=== PATIENT | male | born 1935 | race Caucasian/White ===

== ENCOUNTER 2016-04-03 05:07 | Emergency (ER) | payer BC ==
[~2016-04-03] VITALS: Ht 162.6 cm; Wt 78.1 kg
[~2016-04-03 05:07] MED LIST: CIPR-255 PO; CMD4 PO; RPF/8 PO
[2016-04-03 05:16] VITALS: TEMP 36.4; Ht 162.6 cm; Wt 78.1 kg
[2016-04-03] MEDS ORDERED: WARF4TAB PO (06:10)
[2016-04-03 06:16] LABS: MANUAL MICROSCOPIC REQUIRED? YES; URINE APPEARANCE TURBID (CLEAR); URINE BILIRUBIN NEG (NEG); URINE COLOR RED; URINE NITRITE NEG (NEG); URINE PH 6.5 (4.5-7.5); URINE SPECIFIC GRAVITY 1.025 (1.000-1.030); UROBILINOGEN NEG (NEG)
[2016-04-03 06:24] LABS: REVIEW REQ? NO
[2016-04-03 06:24] LABS: BASO % 0.2 %; BASO ABS # 0.01 K/uL (0-0.2); COMPLETE YES; EOS % 1.7 %; HEMATOCRIT 43.9 % (42-52); IG% 0.2 %; LYMPH % 16.4 %; LYMPH ABS # 0.88 K/uL (1.2-3.4); MEAN CELL VOLUME 92.2 fL (80-100); MEAN CORPUSCULAR HEMOGLOBIN 31.1 pg (25-34); MEAN CORPUSCULAR HGB CONC 33.7 g/dl (32-36); MEAN PLATELET VOLUME 10.1 fL (7.4-10.4); MONO % 7.9 %; NEUT % 73.6 %; PLATELET COUNT 170 K/uL (130-400); RED BLOOD COUNT 4.76 M/uL (4.7-6.1); WHITE BLOOD COUNT 5.35 K/uL (4.8-10.8)
[2016-04-03 06:27] LABS: URINE RBC >30 /hpf (0-4)
[2016-04-03 06:31] LABS: URINE WBC >30 /hpf (0-5)
[2016-04-03 06:35] LABS: INR 1.7 (0.9-1.1); PARTIAL THROMBOPLASTIN RATIO 1.1; PROTHROMBIN TIME (PATIENT) 18.7 SECONDS (9.0-12.0)
[2016-04-03 06:35] LABS: URINE BACTERIA 1+ (NEG); ZZURINE CULT IF INDIC CATH YES
[2016-04-03 06:37] LABS: CALCIUM 8.7 mg/dl (8.5-10.1); CREATININE 1.5 mg/dl (0.60-1.40); POTASSIUM 4.4 mmol/L (3.5-5.1)
--- NOTE | 2016-04-03 06:46 | EMERGENCY ROOM VISIT NOTE ---
ED Visit Note First contact with patient: 05:17 I have personally seen and evaluated the patient with the PA. I agree with the diagnosis and management decisions and have been personally involved in the case. Please see Rhianna Tran PA-C's notes for further details of the history, physical and visit.
--- NOTE | 2016-04-03 06:47 | EMERGENCY ROOM VISIT NOTE ---
History First contact with patient: 05:17 Chief Complaint: HEMATURIA Stated Complaint: BLEEDING FROM THE RECTUM History of Present Illness The patient is a 80 year old male who presents to the Emergency Room with complaints of hematuria for the past day and unable to urinate since last night. He's had hematuria before. He follows at Dr. Sanchez. He's had a polyp removed. He has BPH. Patient denies chest pain, dyspnea, fever, chills, nausea , vomiting, diarrhea, back pain. He complains of bladder discomfort and distention. Review of Systems See HPI for pertinent positives & negatives. A total of 10 systems reviewed and were otherwise negative. Past Medical/Surgical History Medical Problems: (1) Bladder calculi (2) HTN (hypertension) BPH Social History Smoking Status: Never Smoker Drug Use: none Marital Status: Occupation Status: employed Current/Historical Medications Scheduled Silodosin (Rapaflo), 8 MG PO QPM Warfarin Sodium (Coumadin), 4 MG PO DAILY Allergies Coded Allergies: Mitomycin (Verified Adverse Reaction, Mild, BURNING,IRRITATION, INCONTINENCE, 04/03/16) BURNING, IRRITATION AND INCONTINENCE No Known Allergies (Unverified , NONE, 11/01/08) Uncoded Allergies: BCGVACCINE (Adverse Reaction, Unknown, ., 09/16/09) PT STATES THAT HE IS NOT ALLERGIC TO BCG--THERE IS NO RECORD IN [facility] OF PT RECEIVING BCG AT [facility]. DR RODRIGUEZ NOTES THAT PT HAD ADVERSE REACTION FROM BCG, AND HAD A 2ND DOSE THAT WAS MORE DILUTE AND AT A SLOWER RATE. PT DID HAVE 2 DOSES OF MITOMYCIN..PERHAPS THIS IS WHAT HE MEANT?? Physical Exam Vital Signs Date Time Temp Pulse Resp B/P Pulse Ox O2 Delivery O2 Flow Rate FiO2 04/03/16 06:06 61 17 132/84 93 Room Air 04/03/16 05:16 36.4 90 20 169/111 97 Room Air Physical Exam VITALS: Vitals are noted on the nurse's note and reviewed by myself. Vital signs hypertensive GENERAL: Pleasant male who appears uncomfortable, in no acute distress, nondiaphoretic, well-developed well-nourished. SKIN: Capillary reflex less than 2 seconds. HEENT: Normocephalic. PERRLA. EOMI. Nares patent. Mucous membranes moist. Neck is supple without nuchal rigidity. HEART: Regular rate and rhythm LUNGS: Clear to auscultation bilaterally without wheezes, rales or rhonchi. No retractions or accessory muscle use. ABDOMEN: Positive bowel sounds x 4. Normal tympanic percussion. Soft, distended tender bladder without other abdominal tenderness, no CVA tenderness, without masses or organomegaly. Jo sign negative. No guarding or rebound tenderness. MUSCULOSKELETAL: No gross musculoskeletal defects. NEURO: Patient was alert and oriented to person place and time. Normal sensation to light and sharp touch No focal neurological deficits. Medical Decision & Procedures Laboratory Results 04/03/16 06:02 Red Blood Count 4.76, Mean Corpuscular Volume 92.2, Mean Corpuscular Hemoglobin 31.1, Mean Corpuscular Hemoglobin Concent 33.7, Mean Platelet Volume 10.1, Neutrophils (%) (Auto) 73.6, Lymphocytes (%) (Auto) 16.4, Monocytes (%) (Auto) 7.9, Eosinophils (%) (Auto) 1.7, Basophils (%) (Auto) 0.2, Neutrophils # (Auto) 3.94, Lymphocytes # (Auto) 0.88, Monocytes # (Auto) 0.42, Eosinophils # (Auto) 0.09, Basophils # (Auto) 0.01 04/03/16 06:02 Test 04/03/16 05:43 04/03/16 06:02 Urine Color RED Urine Appearance TURBID (CLEAR) Urine pH 6.5 (4.5-7.5) Urine Specific [place] 1.025 (1.000-1.030) Urine Protein 3+ (NEG) Urine Glucose (UA) NEG (NEG) Urine Ketones NEG (NEG) Urine Occult Blood 3+ (NEG) Urine Nitrite NEG (NEG) Urine Bilirubin NEG (NEG) Urine Urobilinogen NEG (NEG) Urine Leukocyte Esterase NEG (NEG) Urine RBC >30 /hpf (0-4) Urine WBC >30 /hpf (0-5) Urine Epithelial Cells 0-5 /lpf (0-5) Urine Bacteria 1+ (NEG) White Blood Count 5.35 K/uL (4.8-10.8) Red Blood Count 4.76 M/uL (4.7-6.1) Hemoglobin 14.8 g/dL (14.0-18.0) Hematocrit 43.9 % (42-52) Mean Corpuscular Volume 92.2 fL (80-100) Mean Corpuscular Hemoglobin 31.1 pg (25-34) Mean Corpuscular Hemoglobin Concent 33.7 g/dl (32-36) Platelet Count 170 K/uL (130-400) Mean Platelet Volume 10.1 fL (7.4-10.4) Neutrophils (%) (Auto) 73.6 % Lymphocytes (%) (Auto) 16.4 % Monocytes (%) (Auto) 7.9 % Eosinophils (%) (Auto) 1.7 % Basophils (%) (Auto) 0.2 % Neutrophils # (Auto) 3.94 K/uL (1.4-6.5) Lymphocytes # (Auto) 0.88 K/uL (1.2-3.4) Monocytes # (Auto) 0.42 K/uL (0.11-0.59) Eosinophils # (Auto) 0.09 K/uL (0-0.5) Basophils # (Auto) 0.01 K/uL (0-0.2) RDW Standard Deviation 44.0 fL (36.4-46.3) RDW Coefficient of Variation 13.0 % (11.5-14.5) Immature Granulocyte % (Auto) 0.2 % Immature Granulocyte # (Auto) 0.01 K/uL (0.00-0.02) Prothrombin Time 18.7 SECONDS (9.0-12.0) Prothromb Time International Ratio 1.7 (0.9-1.1) Activated Partial Thromboplast Time 29.2 SECONDS (21.0-31.0) Partial Thromboplastin Ratio 1.1 Anion Gap 8.0 mmol/L (3-11) Est Creatinine Clear Calc Drug Dose 37.7 ml/min Estimated GFR () 50.6 Estimated GFR (Non- 43.7 BUN/Creatinine Ratio 18.0 (10-20) Calcium Level 8.7 mg/dl (8.5-10.1) ED Course Prior records reviewed and summarized as above. Triage Nursing notes reviewed. Additional history obtained from family The patient's history was concerning for unable to urinate. Differential diagnosis: Etiologies such as urinary retention, UTI, bladder polyp, BPH renal colic, as well as others were entertained.. Physical examination: The physical examination was consistent with urinary retention ER treatment provided: Bladder skin, Rosas catheter On reassessment the patient felt better. Diagnostics interpreted by me: The labs revealed subtherapeutic INR. Stable H&H This appears to be urinary retention. Rosas catheter was placed. Urine cultures pending. He was advised to follow-up with his urologist, Dr. Sanchez in a few days or here in the ER sooner for problems Rosas catheter, fevers, vomiting, worsening signs or symptoms or as needed. He was advised to frequently drain his Rosas bag. Patient's INR is subtherapeutic. He is actively bleeding. He was advised not to change his current dose until instructed by his family care doctor or urology. By the evaluation outlined above emergent etiologies such as renal colic as well as others were deemed relatively unlikely. The pt informed about the findings as listed above. All questions were answered and pleased with the treatment. Return instructions were outlined and the patient was discharged in stable condition. Referral: The patient was referred back to urology for follow-up in 2 to 3 days for a recheck of the current condition. case reviewed with my Attending. Medical Decision as above Impression Primary Impression: Hematuria Additional Impressions: Urinary retention Subtherapeutic international normalized ratio (INR) Departure Information Dispostion Home / Self-Care Condition GOOD Referrals Pro,Oscar Sidhu M.D. (PCP) Patient Instructions My [facility] Additional Instructions Continue current medications. Rest. Stay well hydrated. Change out Rosas catheter bag frequently. Do not pull this out. This can cause damage to your penis. Follow-up with your urologist in 2-3 days. Call for appointment. Return to ER sooner for difficulty with Rosas bag, back pain, abdominal pain, fevers, worsening signs or symptoms or as needed. Problem Qualifiers
[2016-04-03 07:36] VITALS: BP 109/78; PULSE 59; O2SAT 96
== END 2016-04-03 07:38 | disposition home or self-care (01) ==
LOC: C.EDB 05:08 → C.EDA 07:38
DX: R31.9 Hematuria, unspecified (principal); R33.9 Retention of urine, unspecified; R79.1 Abnormal coagulation profile; I10 Essential (primary) hypertension; Z79.01 Long term (current) use of anticoagulants

== ENCOUNTER → 2016-05-07 | Outpatient (CLI) | payer BC ==
[~2016-05-07] MED LIST changes: -CIPR-255 PO; -CMD4 PO; +WARF4TAB PO
[2016-05-07 10:21] LABS: BASO % 0.6 %; BASO ABS # 0.03 K/uL (0-0.2); COMPLETE YES; HEMATOCRIT 42.4 % (42-52); IG% 0.2 %; LYMPH % 27.5 %; LYMPH ABS # 1.38 K/uL (1.2-3.4); MEAN CORPUSCULAR HEMOGLOBIN 30.9 pg (25-34); MEAN PLATELET VOLUME 9.6 fL (7.4-10.4); MONO % 6.2 %; NEUT % 62.5 %; PLATELET COUNT 177 K/uL (130-400); RED BLOOD COUNT 4.66 M/uL (4.7-6.1); WHITE BLOOD COUNT 5.01 K/uL (4.8-10.8)
[2016-05-07 10:30] LABS: BLOOD UREA NITROGEN 19 mg/dl (7-18); BUN/CREATININE RATIO 14.8 (10-20); CALCIUM 8.8 mg/dl (8.5-10.1); CARBON DIOXIDE 30 mmol/L (21-32); CHLORIDE 108 mmol/L (98-107); CHOLESTEROL 208 mg/dl (0-200); GLUCOSE 113 mg/dl (70-99); POTASSIUM 4.4 mmol/L (3.5-5.1); SODIUM 142 mmol/L (136-145); TRIGLYCERIDES 108 mg/dl (0-150); VERY LOW DENSITY LIPOPROT CALC 22 mg/dl
[2016-05-07 10:34] LABS: CHOLESTEROL/HDL RATIO 4.2; HDL CHOLESTEROL 49 mg/dl; LDL CHOLESTEROL CALCULATED 137 mg/dl
[2016-05-07 11:47] LABS: ESTIMATED AVERAGE GLUCOSE 143 mg/dl; HA1C FLAG Normal (Normal)
== END | disposition home or self-care (01) ==
LOC: C.LAB1850 09:03
PROVIDERS: ATTEND Internal Medicine
DX: R73.9 Hyperglycemia, unspecified (principal); E78.5 Hyperlipidemia, unspecified; C61 Malignant neoplasm of prostate; C67.9 Malignant neoplasm of bladder, unspecified

== ENCOUNTER → 2016-06-07 | Outpatient (CLI) | payer BC ==
[2016-06-07 12:17] LABS: INR 2.5 (0.9-1.1); PROTHROMBIN TIME (PATIENT) 27.3 SECONDS (9.0-12.0)
[2016-06-07 13:51] LABS: ALT/SGPT 22 U/L (12-78); AST/SGOT 13 U/L (15-37)
== END | disposition home or self-care (01) ==
LOC: C.LAB1850 11:09
PROVIDERS: ATTEND Internal Medicine
DX: R41.3 Other amnesia (principal); I82.403 Acute embolism and thrombosis of unspecified deep veins of lower extremity, bilateral

== ENCOUNTER → 2016-07-10 | Outpatient (CLI) | payer BC ==
[2016-07-10 11:12] LABS: BLOOD UREA NITROGEN 22 mg/dl (7-18)
== END | disposition home or self-care (01) ==
LOC: C.LABBC 08:59
PROVIDERS: ATTEND Psychiatry & Neurology Neurology
DX: Z00.00 Encounter for general adult medical examination without abnormal findings (principal); R41.3 Other amnesia; F03.90 Unspecified dementia, unspecified severity, without behavioral disturbance, psychotic disturbance, mood disturbance, and anxiety

== ENCOUNTER → 2016-07-14 | Outpatient (CLI) | payer BC ==
[~2016-07-14] MED LIST changes: +GADAVIST IV PRN
--- NOTE | 2016-07-14 12:36 | DIAGNOSTIC IMAGING REPORT ---
MRI OF THE BRAIN COMBO CLINICAL HISTORY: Dementia. Memory loss. COMPARISON STUDY: No priors. TECHNIQUE: MRI of the brain was performed utilizing various T1 and T2-weighted sequences in the axial, sagittal, and coronal planes. Contrast-enhanced sequences were acquired following the administration of 7 cc of Gadavist. FINDINGS: Brain parenchyma: There are age-related involutional changes noting minimal subcortical and periventricular microangiopathic disease. There is no hemorrhage or mass effect. There is no restricted diffusion to suggest acute ischemia. No enhancing mass lesion is identified on the postcontrast images. Rodriguez-white matter differentiation is preserved. No extra-axial fluid collection is seen. The cerebellar tonsils are normal in configuration. Ventricles, sulci, and cisterns: Prominent secondary to involutional change. Pituitary and sella: Unremarkable. Intracranial vasculature: Normal flow voids are maintained at the skull base. Orbits: The bony orbits are grossly intact. Orbital contents are normal in appearance. Sinuses and mastoids: Clear. Calvarium: Unremarkable. Cervical cord: Partially visualized cervical spinal cord is normal in morphology and signal intensity. IMPRESSION: Age-related changes as above with no acute intracranial abnormality. Electronically signed by: Raudel Hayes M.D. 07/14/2016 12:35 PM Dictated Date/Time: 07/14/2016 12:23 PM
== END | disposition home or self-care (01) ==
LOC: C.MRIBC 11:24
PROVIDERS: ATTEND Psychiatry & Neurology Neurology
DX: F03.90 Unspecified dementia, unspecified severity, without behavioral disturbance, psychotic disturbance, mood disturbance, and anxiety (principal); R41.3 Other amnesia

== ENCOUNTER → 2016-11-05 | Outpatient (CLI) | payer BC ==
[~2016-11-05] MED LIST changes: -GADAVIST IV PRN
[2016-11-05 11:48] LABS: INR 1.3 (0.9-1.1); PROTHROMBIN TIME (PATIENT) 13.8 SECONDS (9.0-12.0)
[2016-11-05 11:51] LABS: AST/SGOT 17 U/L (15-37); BLOOD UREA NITROGEN 18 mg/dl (7-18); CALCIUM 8.7 mg/dl (8.5-10.1); CARBON DIOXIDE 30 mmol/L (21-32); CHLORIDE 107 mmol/L (98-107); GLUCOSE 114 mg/dl (70-99); POTASSIUM 4.5 mmol/L (3.5-5.1); SODIUM 140 mmol/L (136-145)
[2016-11-05 11:54] LABS: ALT/SGPT 31 U/L (12-78); CHOLESTEROL 110 mg/dl (0-200); CHOLESTEROL/HDL RATIO 2.2; HDL CHOLESTEROL 49 mg/dl; LDL CHOLESTEROL CALCULATED 47 mg/dl; TRIGLYCERIDES 72 mg/dl (0-150); VERY LOW DENSITY LIPOPROT CALC 14 mg/dl
[2016-11-05 12:05] LABS: ESTIMATED AVERAGE GLUCOSE 148 mg/dl; HA1C FLAG Normal (Normal)
== END | disposition home or self-care (01) ==
LOC: C.LAB1850 10:11
PROVIDERS: ATTEND Internal Medicine
DX: E78.5 Hyperlipidemia, unspecified (principal); D68.59 Other primary thrombophilia; R73.9 Hyperglycemia, unspecified; I10 Essential (primary) hypertension

== ENCOUNTER → 2017-03-04 | Outpatient (CLI) | payer BC ==
[2017-03-04 16:48] LABS: INR 2.2 (0.9-1.1)
== END | disposition home or self-care (01) ==
LOC: C.LABBC 13:18
PROVIDERS: ATTEND Internal Medicine
DX: I82.599 Chronic embolism and thrombosis of other specified deep vein of unspecified lower extremity (principal)

== ENCOUNTER → 2017-04-19 | Outpatient (CLI) | payer BC | END | disposition home or self-care (01) | LOC: C.LABBC 10:56 | PROVIDERS: ATTEND Urology | DX: R41.3 Other amnesia (principal); C61 Malignant neoplasm of prostate; L57.0 Actinic keratosis ==

== ENCOUNTER 2017-09-16 18:22 | Emergency (ER) | payer BC ==
[~2017-09-16] VITALS: Ht 162.6 cm; Wt 79.6 kg
[~2017-09-16 18:22] MED LIST changes: -RPF/8 PO
[2017-09-16 18:30] VITALS: TEMP 36.6; Ht 162.6 cm; Wt 79.6 kg
--- NOTE | 2017-09-16 18:53 | EMERGENCY ROOM VISIT NOTE ---
ED Visit Note First contact with patient: 18:36 CHIEF COMPLAINT: Right thigh swelling/bruising HISTORY OF PRESENTING ILLNESS: This is an 82-year-old male who presents to the emergency department by private vehicle with his with complaint of right thigh swelling and bruising. Patient states that he was working in the yard a few days ago and thinks he may have bumped his inner thigh. He started to notice some swelling and mild pain in the area. Yesterday he started to notice bruising to the thigh that has gotten worse today. He is on warfarin for history of DVT, he did have his INR level checked yesterday and was notified today that it was 4.1, he was instructed not to take his warfarin tonight or tomorrow. He states that he was concerned about how much bruising he was having in the leg, and wanted to have this evaluated. He describes the pain as mild, like a pressure, worse with walking on the leg, currently rates as 3/10. He denies any falls and denies any recent head injury. He denies any other abnormal bleeding or bruising. He denies any chest pain, shortness of breath, dizziness or syncope, blood in his stool or urine, or unusual rash. REVIEW OF SYSTEMS: A complete 10 point review of systems was reviewed with the patient with pertinent positives and negatives as per history of present illness. All else were negative. PAST MEDICAL HISTORY: Reviewed in chart, see problem list below. SOCIAL HISTORY: Lives at home with his . He denies tobacco use. ALLERGIES: Reviewed in chart, see below. PHYSICAL EXAM: CONSTITUTIONAL: Pleasant and cooperative. No acute distress. Well appearing and well nourished. HEENT: Normocephalic, atraumatic. Pupils equal, round and reactive to light, EOMI, conjunctiva normal with no pallor. TMs normal. Pharynx normal. NECK: Supple, full active range of motion without discomfort. RESPIRATORY: Clear to auscultation bilaterally with no wheezing, crackles, rhonchi or stridor. Equal expansion bilaterally. CARDIOVASCULAR: Regular rate and rhythm with no murmurs, rubs or gallops. Normal peripheral perfusion. No edema. GASTROINTESTINAL: Soft, nontender, nondistended. No palpable masses or HSM. Bowel sounds present in all quadrants. MUSCULOSKELETAL: There is a large hematoma noted to the medial right thigh with surrounding ecchymosis. Hematoma measures approximately 8 cm x 15 cm, nonpulsatile. Mildly tender to palpation. No erythema, induration, or warmth. Full range of motion of all joints without discomfort. INTEGUMENTARY: No rash or other significant dermatologic conditions noted. NEUROLOGIC: Alert and oriented X 4 with normal affect. Normal strength and sensation in all 4 extremities. No focal neurologic deficits noted. Normal speech. Normal gait observed. ED COURSE AND MEDICAL DECISION MAKING: CC: Patient presenting with complaint of right thigh swelling/bruising DIFFERENTIAL DIAGNOSIS: Includes, but not limited to contusion, hematoma, supratherapeutic anticoagulation, among others. INTERPRETATION OF LABS: PT/INR 3.7, improved from yesterday IMAGING: R FEMUR 2 VIEWS ROUTINE CLINICAL HISTORY: medial thigh pain, hematoma, eval fx trauma. Pain. COMPARISON: None. DISCUSSION: The bones and joint spaces appear intact. There is no evidence of fracture, dislocation or bony disease. There is no evidence for soft tissue swelling. Soft tissue vascular calcification IMPRESSION: No acute process. Mild degenerative change right knee and right hip. MEDICATION RECONCILIATION: I attest that I have personally reviewed the patient 's current medication list. INITIAL VITAL SIGNS REVIEW: I reviewed the patient's initial vital signs and interpret them as follows: T: Afebrile; BP: Hypertensive; HR: Within normal limits; RR: Within normal limits; Pulse Ox: Within normal limits on room air. Blood pressure screening: The patient was found to have an elevated blood pressure and was referred to their primary doctor for recheck and further treatment. SUMMARY: Patient was evaluated at bedside, history and physical exam performed. Patient is alert and oriented, no acute distress, resting calmly in stretcher. There is a large hematoma noted to the right medial thigh with surrounding ecchymosis. Orders were placed at bedside for PT/INR to evaluate for worsening of increased level. Patient discussed with Dr. Sigala, who also evaluated the patient and agrees with my assessment and plan. INR appears to be improving from yesterday's level of 4.1, encouraged patient to stick with the plan of holding his dose of warfarin today and tomorrow. An Rito wrap was applied to the patient's right thigh for compression and improved comfort, neurovascularly intact upon recheck after Rito wrap was applied. Patient reassessed multiple times throughout ED stay, he has remained stable and without complaint. Patient and were updated on all results and plan for discharge, they were encouraged to follow closely with the PCP. Patient and were also given strict return precautions should his symptoms worsen, they verbalized understanding. Patient was discharged home in stable condition and ambulatory. Problem List Medical Problems: (1) Bladder calculi Status: Resolved (2) HTN (hypertension) Status: Chronic Current/Historical Medications Scheduled Atorvastatin (Lipitor), 20 MG PO DAILY Donepezil HCl (Donepezil HCl), 5 MG PO HS Memantine HCl (Memantine HCl), 10 MG PO BID Silodosin (Rapaflo), 8 MG PO QPM Warfarin Sodium (Coumadin), 4 MG PO HOLD Allergies Coded Allergies: Mitomycin (Verified Adverse Reaction, Mild, BURNING,IRRITATION, INCONTINENCE, 04/03/16) BURNING, IRRITATION AND INCONTINENCE Uncoded Allergies: BCGVACCINE (Adverse Reaction, Unknown, ., 09/16/09) PT STATES THAT HE IS NOT ALLERGIC TO BCG--THERE IS NO RECORD IN [facility] OF PT RECEIVING BCG AT [facility]. DR RODRIGUEZ NOTES THAT PT HAD ADVERSE REACTION FROM BCG, AND HAD A 2ND DOSE THAT WAS MORE DILUTE AND AT A SLOWER RATE. PT DID HAVE 2 DOSES OF MITOMYCIN..PERHAPS THIS IS WHAT HE MEANT?? Vital Signs Date Time Temp Pulse Resp B/P (MAP) Pulse Ox O2 Delivery O2 Flow Rate FiO2 09/16/17 21:15 70 18 160/95 95 09/16/17 18:30 36.6 67 18 162/93 95 Room Air Laboratory Results Test 09/16/17 19:05 Prothrombin Time 38.2 SECONDS (9.0-12.0) Prothromb Time International Ratio 3.7 (0.9-1.1) Departure Information Impression Primary Impression: Hematoma of right thigh Dispostion Home / Self-Care Condition GOOD Referrals Pro,Oscar Sidhu M.D. (PCP) Patient Instructions ED Hematoma, My [facility] Additional Instructions You have been evaluated and treated in the emergency department today for your right thigh hematoma. X-ray of your thigh does not show any abnormalities. Your INR level today is 3.7, keep the plan for the warfarin to hold doses tonight and tomorrow as instructed and have your INR level rechecked on Tuesday. Wear the Rito wrap around the thigh for comfort. Keep the right leg elevated as much as possible to help reduce pain and swelling. You may apply warm compresses to the area to help improve pain. You may take extra strength Tylenol 1-2 tablets every 8 hours as needed for pain. Follow-up with your primary care provider in the next few days if your symptoms are not improving, or sooner if they get worse. Please return to the emergency department if you develop chest pain, shortness of breath, severe dizziness or passing out, significantly worsening pain or swelling of the leg, if the leg gets hot to the touch, if you develop fevers, chills, or feeling ill, or for any other concerns. Problem Qualifiers Primary Impression: Hematoma of right thigh Encounter type: initial encounter Qualified Codes: S70.11XA - Contusion of right thigh, initial encounter
[2017-09-16] MEDS ORDERED: MEMA1TAB4 PO (19:10)
[2017-09-16] MEDS ORDERED: ATOR-22 PO (19:10)
[2017-09-16] MEDS ORDERED: ARC5 PO (19:10)
--- NOTE | 2017-09-16 19:26 | DIAGNOSTIC IMAGING REPORT ---
R FEMUR 2 VIEWS ROUTINE CLINICAL HISTORY: medial thigh pain, hematoma, eval fx trauma. Pain. COMPARISON: None. DISCUSSION: The bones and joint spaces appear intact. There is no evidence of fracture, dislocation or bony disease. There is no evidence for soft tissue swelling. Soft tissue vascular calcification IMPRESSION: No acute process. Mild degenerative change right knee and right hip. The above report was generated using voice recognition software. It may contain grammatical, syntax or spelling errors. Electronically signed by: Jamel Smith M.D. 09/16/2017 7:25 PM Dictated Date/Time: 09/16/2017 7:24 PM
[2017-09-16 19:38] LABS: INR 3.7 (0.9-1.1)
[2017-09-16] MEDS ORDERED: SILO8CAP3 PO (20:30)
--- NOTE | 2017-09-16 21:00 | EMERGENCY ROOM VISIT NOTE ---
ED Visit Note First contact with patient: 18:36 This Patient was discussed with the nurse practitioner, True Eng. The pertinent historical and physical exam findings were confirmed. I agree with the studies ordered and with the interpretations of these studies. I agree with the disposition and care plan.
[2017-09-16 21:15] VITALS: BP 160/95; PULSE 70; O2SAT 95
== END 2017-09-16 21:16 | disposition home or self-care (01) ==
LOC: C.EDB 18:25 → C.EDD 21:16
DX: S70.11XA Contusion of right thigh, initial encounter (principal); X58.XXXA Exposure to other specified factors, initial encounter; I10 Essential (primary) hypertension; Z79.899 Other long term (current) drug therapy; Z79.01 Long term (current) use of anticoagulants; Z88.8 Allergy status to other drugs, medicaments and biological substances